=== PATIENT | female | born 1970 | race Caucasian/White ===

== ENCOUNTER 2021-12-22 19:05 | Inpatient (IN) | payer OTHER ==
[~2021-12-22] VITALS: Ht 162.6 cm; Wt 71.9 kg
--- NOTE | 2021-12-22 21:50 | NUR ---
RECEIVED FROM [facility] VIA EMS. DENIES PAIN OR SOA AT THIS TIME. STATES SHE RECEIVED MORPHINE PRIOR TO LEAVING [place]. ALSO STATES SHE WILL NEED MORPHINE AGAIN IN 4 HOURS. PLACED ON [employer], NSR NOTED WITHOUT ECTOPY AT THIS TIME. NITROGLYCERIN DRIP INFUSING AT 17 MCGS/MIN. VITAL SIGNS CHARTED. DR. CHE AND DR CALDERON NOTIFIED OF ARRIVAL. ASSESSMENT COMPLETED CHARTED.
[2021-12-22] MEDS ORDERED: METFORMIN HCL1000 MG PO ×2 (22:13)
[2021-12-22] MEDS ORDERED: OMEGA 3 1,0001 EACH PO (22:13)
[2021-12-22] MEDS ORDERED: TRULICITY1.5 MG/0.5 SQ (22:14)
[2021-12-22] MEDS ORDERED: FARXIGA5 MG PO (22:14)
[2021-12-22] MEDS ORDERED: TRAZODONE HCL100 MG PO (22:14)
[2021-12-22] MEDS ORDERED: VITAMIN D21250 MCG PO (22:15)
[2021-12-22] MEDS ORDERED: ROBAXIN 750 MG750 MG PO (22:15)
[2021-12-22] MEDS ORDERED: ESTRADIOL1 EAC1 TD (22:15)
[2021-12-22] MEDS ORDERED: NEURONTIN600 MG PO (22:16)
[2021-12-22] MEDS ORDERED: CRESTOR20 MG PO (22:16)
[2021-12-23 00:19] LABS: HEMOGLOBIN 13.6 gm/dl (12.3-15.3); RED BLOOD COUNT 4.24 M/UL (4.00-5.10); WHITE BLOOD COUNT 13.5 K/UL (4.5-11.0)
[2021-12-23 00:52] LABS: BUN/CREATININE RATIO 16 (0-10)
[2021-12-23] MEDS ORDERED: CRESTOR 10 MG T10 MG PO (17:13)
[2021-12-23] MEDS ORDERED: LOPRESSOR 25 MG25 MG PO (17:13)
[2021-12-23] MEDS ORDERED: HEPARIN SO5000 UNIT2 IVP (17:13)
[2021-12-23] MEDS ORDERED: ASPIRIN EC81 MG PO (17:13)
[2021-12-23] MEDS ORDERED: ISOSORBIDE MONO60 MG PO (17:13)
[2021-12-24 16:20] LABS: HEMOGLOBIN 11.2 gm/dl (12.3-15.3); RED BLOOD COUNT 3.47 M/UL (4.00-5.10); WHITE BLOOD COUNT 10.1 K/UL (4.5-11.0)
[2021-12-24 16:39] LABS: BUN/CREATININE RATIO 17 (0-10)
== END 2021-12-24 18:40 | disposition short-term general hospital (02) | DRG 280 ==
LOC: CCU 21:54
PROVIDERS: Internal Medicine; ADMIT Internal Medicine
PROC: 4A023N7 Measurement of Cardiac Sampling and Pressure, Left Heart, Percutaneous Approach (ICD-10-PCS; principal; 2021-12-23)
PROC: B2111ZZ Fluoroscopy of Multiple Coronary Arteries using Low Osmolar Contrast (ICD-10-PCS; 2021-12-23)
PROC: B2151ZZ Fluoroscopy of Left Heart using Low Osmolar Contrast (ICD-10-PCS; 2021-12-23)
PROC: B24BZZZ Ultrasonography of Heart with Aorta (ICD-10-PCS; 2021-12-23)
PROC: 8E0ZXY6 Isolation (ICD-10-PCS; 2021-12-23)
DX: I21.4 Non-ST elevation (NSTEMI) myocardial infarction (principal); U07.1 COVID-19; I10 Essential (primary) hypertension; I25.10 Atherosclerotic heart disease of native coronary artery without angina pectoris; F17.290 Nicotine dependence, other tobacco product, uncomplicated; E11.9 Type 2 diabetes mellitus without complications; E78.5 Hyperlipidemia, unspecified; Z90.710 Acquired absence of both cervix and uterus; Z90.49 Acquired absence of other specified parts of digestive tract; Z88.8 Allergy status to other drugs, medicaments and biological substances; Z82.49 Family history of ischemic heart disease and other diseases of the circulatory system; Z79.899 Other long term (current) drug therapy; Z79.82 Long term (current) use of aspirin; Z79.84 Long term (current) use of oral hypoglycemic drugs; Z91.040 Latex allergy status
CPT/HCPCS: ECHO; 36415; 80048; 82550; 82553; 82962; 84484; 85025; 85610; 85730; 93005; 93306; 99152; 99153; C1769; C1887; C1894; J1644; J2250; J2270; J2405; J3010; J7030; J7040; Q9967